=== PATIENT | male | born 1990 | race Two or more races ===

== ENCOUNTER 2018-08-15 10:18 | Inpatient (IN) | payer SELFPAY ==
[~2018-08-15] VITALS: Ht 177.8 cm; Wt 122.5 kg
[2018-08-15] MEDS ORDERED: ONDANSETRON HCL/PF 4 MG/2 ML VIAL ONE (10:46)
[2018-08-15] MEDS ORDERED: MORPHINE SULFATE INJ 4 MG/ML DISP.SYRIN ONE ×2 (10:47→11:12)
[2018-08-15] MEDS ORDERED: IV NS 0.9% 1,000 ML BAG IV ONE (11:00)
[2018-08-15] MEDS ORDERED: ONDANSETRON HCL/PF 4 MG/2 ML VIAL IVP ONE (11:00)
[2018-08-15] MEDS ORDERED: MORPHINE SULFATE INJ 2 MG/ML DISP.SYRIN IV ONE ×2 (11:00→11:30)
[2018-08-15 11:03] LABS: BASOPHILS # (AUTO) 0.2 /CMM (0.0-0.2); BASOPHILS % (AUTO) 1.7 % (0.0-2.0); EOSINOPHILS % (AUTO) 0.1 % (0.0-6.0); HEMATOCRIT 45 % (39-51); HEMOGLOBIN 14.9 g/dL (13.5-17.5); LYMPHOCYTES # (AUTO) 1.3 /CMM (0.8-4.8); LYMPHOCYTES % (AUTO) 9.2 % (20.0-44.0); MEAN CORPUSCULAR HGB CONC 33 g/dl (31.0-36.0); MEAN CORPUSCULAR VOLUME 83 fL (80-96); MONOCYTES # (AUTO) 0.5 /CMM (0.1-1.30); MONOCYTES % (AUTO) 3.7 % (2.0-12.0); NEUTROPHILS # (AUTO) 12.6 /CMM (1.8-8.9); NEUTROPHILS % (AUTO) 85.3 % (43.0-81.0); PLATELET COUNT (AUTO) 283 /CMM (150-450); RDW COEFFICIENT OF VARIATION 11.9 (11.5-15.0); RED BLOOD CELL COUNT(AUTO) 5.37 MIL/uL (4.5-6.0); WHITE BLOOD COUNT (AUTO) 14.6 K/uL (4.3-11.0)
[2018-08-15 11:04] LABS: APPEARANCE,URINE Clear (CLEAR); BILIRUBIN,URINE SMALL (NEGATIVE); BLOOD, URINE Negative Ery/uL (NEGATIVE); COLOR,URINE Dark (YELLOW); KETONES,URINE >=160 (NEGATIVE); LEUKOCYTE ESTERASE ,URINE Negative (NEGATIVE); NITRITE, URINE Negative (NEGATIVE); PH,URINE 8.5 (5.0-8.0); PROTEIN,URINE 100 mg/dl (NEGATIVE); UGLUCOSE Negative (NEGATIVE)
--- NOTE | 2018-08-15 11:15 | NUR ---
Pt still complaining of pain Dr Ruiz made aware w/orders
[2018-08-15 11:20] LABS: INR 0.95 (0.85-1.15)
[2018-08-15 11:22] LABS: ALBUMIN 4.2 g/dL (3.4-5.0); BILIRUBIN,DIRECT 0.1 mg/dL (0.0-0.2); BILIRUBIN,TOTAL 0.8 mg/dL (0.2-1.0); CREATININE 1.2 mg/dL (0.6-1.3); POTASSIUM 3.4 mmol/L (3.5-5.1); TOTAL PROTEIN, SERUM 8.1 g/dL (6.4-8.2)
[2018-08-15] MEDS ORDERED: LORAZEPAM INJ 2 MG/ML VIAL ONE (11:22)
[2018-08-15] MEDS ORDERED: LORAZEPAM INJ 2 MG/ML VIAL IV ONE (11:30)
[2018-08-15 11:31] LABS: BACTERIA,URINE Rare /HPF (None Seen); RBC,URINE NONE SEEN /HPF (0-2); SQUAMOUS EPITHELIAL CELL,UR Few /HPF (None Seen); WBC,URINE NONE SEEN /HPF (0-3)
--- NOTE | 2018-08-15 11:39 | NUR ---
ACACIA AND SPOKE WITH DR RIP MCNEIL
--- NOTE | 2018-08-15 11:40 | NUR ---
Pt dozing appears more comfortable skin warm/dry/pink states pain"its a little better but still hurts" updated w/plan
--- NOTE | 2018-08-15 12:24 | NUR ---
Pt going to -. Nurse knowledge exchange w/RN-Eh. Transported per sury by EMT VSS
[2018-08-15] MEDS ORDERED: Z GUARD REMEDY 2 OZ OINT TP PRN (13:30)
[2018-08-15] MEDS ORDERED: ZOLPIDEM TARTRATE 5 MG TABLET PO PRN (13:30)
[2018-08-15] MEDS ORDERED: ACETAMINOPHEN 325 MG TABLET PO PRN (13:30)
[2018-08-15] MEDS ORDERED: MAGNESIUM HYDROXIDE 30 ML UDC PO PRN (13:30)
[2018-08-15] MEDS ORDERED: MORPHINE SULFATE INJ 2 MG/ML DISP.SYRIN IV PRN (13:30)
[2018-08-15] MEDS ORDERED: MAG HYDROX/AL HYDROX/SIMETH 30 ML UDC PO PRN (13:30)
[2018-08-15] MEDS ORDERED: ONDANSETRON HCL/PF 4 MG/2 ML VIAL IVP PRN (13:30)
[2018-08-15 14:00] VITALS: BP 152/74
--- NOTE | 2018-08-15 14:00 | NUR ---
MS FEED MILL SUPERVISOR NOTE PT ARRIVED TO [facility] UNIT VIA GURNEY IN STABLE CONDITION ACCOMPANIED BY FRIEND. PT ABLE TO AMBULATE TO BED. PT IS A/O X4, AFEBRILE. RESPIRATIONS ARE EVEN AND UNLABORED, NOT IN ANY ACUTE DISTRESS NOTED. NO C/O SOB, N/V. PT C/O PAIN 10/10 TO RIGHT ABDOMEN/FLANK AND WILL MANAGE PAIN ACCORDINGLY. ABDOMEN IS TENDER RUQ/RLQ W/ PAIN UPON PALPATION. PT DENIES ANY BLADDER DISCOMFORT. IV SITE TO RIGHT HANG G20, INTACT. NO INFILTRATION NOTED. DRESSING KEPT CLEAN AND DRY. NO SKIN ISSUES NOTED. ID BAND REPLACED. SAFETY MEASURES ARE IN PLACE. INSTRUCTED PT TO USE CALL LIGHT WHEN ASSISTANCE IS NEEDED, CALL LIGHT IS LEFT WITHIN REACH. DR. STEVENS MADE AWARE OF ADMISSION. WILL CONTINUE TO MONITOR THROUGHOUT SHIFT FOR CONTINUITY OF CARE.
[2018-08-15] MEDS: IV NS 0.9% 1,000 ML IV PRN (14:11)
[2018-08-15] MEDS: MORPHINE SULFATE INJ 4 MG/ML DISP.SYRIN IV PRN (14:20)
[2018-08-15] MEDS: PIPERACILLIN /TAZOBACTAM 3.375 G in IV D5W 50 ML IV SCH ×2 (14:23→19:53)
--- NOTE | 2018-08-15 14:30 | NUR ---
DR HARRISON AT BEDSIDE TALKING TO PATIENT. CANCEL HIDA SCAN PER DR HARRISON. PATIENT FOR LAPAROSCOPIC CHOLECYSTECTOMY POSSIBLE OPEN TOMORROW,PER DR HARRISON.
--- NOTE | 2018-08-15 15:03 | NUR ---
NPO AFTER MIDNIGHT PER DR HARRISON
[2018-08-15 16:00] VITALS: BP 128/65
[2018-08-15] MEDS: HYDROCODONE/APAP 5/325MG 1 EACH TABLET PO PRN (17:41)
--- NOTE | 2018-08-15 18:37 | NUR ---
MS RN CLOSING NOTES ALL DUE MEDS GIVEN, NEEDS MET AND RENDERED. PT REMAINS A/O X4, AFEBRILE. RESPIRATIONS ARE EVEN AND UNLABORED, NOT IN ANY ACUTE DISTRESS NOTED. DENIES ANY CHEST PIN, SOB, N/V. PAIN HAS BEEN CONTROLLED TO RIGHT FLANK. IV SITE INTACT, NO INFILTRATION NOTED. DRESSING KEPT CLEAN AND DRY. IV FLUIDS RUNNING AND TOLERATING WELL. SAFETY MEASURES ARE IN PLACE. REMINDED PT TO USE CALL LIGHT WHEN ASSISTANCE IS NEEDED, CALL LIGHT IS LEFT WITHIN REACH. WILL ENDORSE TO NEXT SHIFT FOR CONTINUITY OF CARE.
--- NOTE | 2018-08-15 19:50 | NUR ---
RN INITIAL NOTES: RECEIVED REPORT FROM JOSE EVANS. MET WITH PT AT BED SIDE, PT IS A/O X4, ON RA RESPIRATION EVEN AND UNLABORED, PT STATED HE'S PAIN WAS A LOT BETTER /, CLAIMED HE DOESNT NEED ANY PAIN MEDICATION AT THIS TIME, AND WILL CALL IF HE NEEDS IT. FRIENDS AT BED SIDE. PT AWARE OF THE SURGERY TOMORROW, CONSENT FOR PROCEDURE, ANESTHESIA, AND BLOOD OBTAINED BY KYARA RN. PT MADE AWARE THAT HE WILL BE NPO AFTER MIDNIGHT. PT REFUSED IVF, STATED HE'S BEEN DRINKING LITERS OF WATER. EDUCATION PROVIDED TO THE PT. PT HAS RIGHT HAND G 20 PATENT AND FLUSHING WELL, ON HL, NO S/S OF INFILTRATION NOTED. SAFETY PRECAUTIONS FOR FALL INITIATED, CALL LIGHT IN REACH, WILL CONTINUE MONITORING PT.
[2018-08-15 20:00] VITALS: BP 114/89
--- NOTE | 2018-08-15 22:00 | NUR ---
RN NOTES: OFFERED PAIN MEDICATION BUT PT STATED HE'S OKAY FOR NOW, HE WILL CALL WHEN HE NEEDS THE MEDICINE
[2018-08-16] VITALS (9 sets, daily range): BP systolic 117–145; BP diastolic 57–74
--- NOTE | 2018-08-16 | NUR ---
RN NOTES: PT ON NPO, REMOVED WATER AND PITCHER ON THE TABLE, PT SLEEPING AT THIS TIME
[2018-08-16] MEDS: PIPERACILLIN /TAZOBACTAM 3.375 G in IV D5W 50 ML IV SCH ×4 (01:03→19:46)
[2018-08-16] MEDS: IV NS 0.9% 1,000 ML IV PRN (02:41)
[2018-08-16] MEDS ORDERED: BUPIVACAINE MPF W/EPI 0.25% 30 ML VIAL ONE (06:56)
--- NOTE | 2018-08-16 07:15 | NUR ---
RN CLOSING NOTES: PT IN BED, AWAKE, DENIES ANY PAIN OR DISCOMFORT AT THIS TIME. IV ACCESS REMAINS PATENT AND FLUSHING WELL, ON HL, REFUSED IVF. PT REMAINS ON NPO FOR SURGERY AT 0730AM. ALL CONSENT SECURED, CHECKLIST COMPLETED. VS REMAINS STABLE. NEEDS ATTENDED. SAFETY PRECAUTIONS FOR FALL REMAINS ENGAGED, CALL LIGHT IN REACH, WILL ENDORSE TO DAY RN FOR CONTINUITY OF CARE.
[2018-08-16] MEDS ORDERED: MIDAZOLAM HCL 2 MG/2ML VIAL ONE (07:22)
[2018-08-16] MEDS ORDERED: FENTANYL PF 250MCG/5ML AMPUL ONE (07:22)
[2018-08-16] MEDS ORDERED: FENTANYL PF 100MCG/2ML AMPUL ONE ×3 (07:23→09:03)
[2018-08-16] MEDS ORDERED: METOCLOPRAMIDE HCL 10 MG/2 ML VIAL ONE ×2 (07:24→09:36)
[2018-08-16] MEDS ORDERED: ROCURONIUM BROMIDE 50 MG/5 ML ONE ×2 (07:25→08:33)
[2018-08-16] MEDS ORDERED: FAMOTIDINE/PF INJ 20 MG/2 ML VIAL IV ONE (07:25)
[2018-08-16 07:34] LABS: BASOPHILS % (AUTO) 0.1 % (0.0-2.0); EOSINOPHILS % (AUTO) 0.4 % (0.0-6.0); HEMATOCRIT 43 % (39-51); LYMPHOCYTES # (AUTO) 1.6 /CMM (0.8-4.8); LYMPHOCYTES % (AUTO) 15.1 % (20.0-44.0); MEAN CORPUSCULAR HGB CONC 33 g/dl (31.0-36.0); MEAN CORPUSCULAR VOLUME 86 fL (80-96); MONOCYTES # (AUTO) 0.9 /CMM (0.1-1.30); MONOCYTES % (AUTO) 8.5 % (2.0-12.0); NEUTROPHILS # (AUTO) 7.9 /CMM (1.8-8.9); NEUTROPHILS % (AUTO) 75.9 % (43.0-81.0); PLATELET COUNT (AUTO) 215 /CMM (150-450); RDW COEFFICIENT OF VARIATION 12.8 (11.5-15.0); RED BLOOD CELL COUNT(AUTO) 4.93 MIL/uL (4.5-6.0); WHITE BLOOD COUNT (AUTO) 10.4 K/uL (4.3-11.0)
--- NOTE | 2018-08-16 07:37 | NUR ---
MS RN Initial notes Patient off the unit, surgery today for lap rex. by Dr. Alvarez.
[2018-08-16 07:59] LABS: ALBUMIN 3.4 g/dL (3.4-5.0); BILIRUBIN,TOTAL 0.8 mg/dL (0.2-1.0); MAGNESIUM 1.7 mg/dL (1.8-2.4); PHOSPHORUS 2.8 mg/dL (2.5-4.9); POTASSIUM 3.7 mmol/L (3.5-5.1); TOTAL PROTEIN, SERUM 7.1 g/dL (6.4-8.2)
[2018-08-16] MEDS: MORPHINE SULFATE INJ 4 MG/ML DISP.SYRIN IV PRN ×4 (10:02→22:01)
--- NOTE | 2018-08-16 10:27 | NUR ---
Patient is back from OR, s/p Lap cholecystectomy by Dr. Valdez. Lap sites x5 and 1 ROSCOE drain with bloody fluid output, patient is awake, complaint of severe pain incisional sites, given IV PRN morphine, will reassess. at the bedside. Addendum: 08/16/18 at 1038 by ELVIN VILLATORO RN Continuation notes below: Zosyn 0800 dose non administered, will give next dose at due time, spoke with pharmacy [facility].
[2018-08-16] MEDS: Magnesium 1GM/D5W 100ML PREMIX 100 ML IV SCH ×2 (11:21→12:27)
[2018-08-16] MEDS: HYDROCODONE/APAP 5/325MG 1 EACH TABLET PO PRN ×3 (11:32→19:43)
[2018-08-16] MEDS: IV D5/0.45 NACL W/20 MEQ KCL 1L IV PRN ×2 (12:58)
--- NOTE | 2018-08-16 18:45 | NUR ---
MS RN Closing notes Patient is A/O x4. Breathing on room air, tolerating well, denies SOB. S/P lap Cholecystectomy today by Dr. Valdez. Patient's V/S been stable throughout the shift. Abdomen incisional sites pain managed by IV PRN Morphine and PO PRN [place]. Low magnesium level, supplemented today. Abdomen lap sites covered with mepilex, clean and dry. ROSCOE drain intact to bulb suction with bloody fluid output 310ml, drain site with minimal bleeding, covered with ABD pad and secured with paper tape. Tolerating full liquids diet, no N/V, will advance to regular diet as ordered. Ambulate independently to the bathroom and voided without difficulty. Call light within reach. Will endorse to oncoming RN.
--- NOTE | 2018-08-16 19:36 | NUR ---
MS/RN OPENING NOTES RECEIVED PATIENT IN BED, ALERT, AWAKE, ABLE TO VERBALIZE NEEDS, FAMILY AT BEDSIDE, PAIN MEDICATION MONITORING FOR RELIEF, INFOMRD SOME PAIN MODERATE AND NORCO PO DUE TO BE GIVEN, KEPT COMFORTABLE, O2 SAT AT 2L AT 99%M ROSCOE DRAIN WITH MINIMAL DRAIN, WILL CONTINUE TO PROVIDE AND MONITOR PATIENT. RECEWIVED ENDORSEMENT FROM AM RN AFTER S/P SX.
[2018-08-17] MEDS ORDERED: IV PREMIX D5 1/2NS + KCL 1,000 ML IV ONE (01:27)
[2018-08-17] MEDS: PIPERACILLIN /TAZOBACTAM 3.375 G in IV D5W 50 ML IV SCH ×4 (01:36→20:49)
[2018-08-17] MEDS: IV D5/0.45 NACL W/20 MEQ KCL 1L IV PRN ×2 (01:38)
[2018-08-17] MEDS ORDERED: MORPHINE SULFATE INJ 4 MG/ML DISP.SYRIN ONE (04:28)
[2018-08-17] MEDS: MORPHINE SULFATE INJ 4 MG/ML DISP.SYRIN IV PRN ×3 (04:34→18:13)
--- NOTE | 2018-08-17 04:40 | NUR ---
ms/rn notes PAIN REPORTED /, PAIN IN ABDOMEN AND RADIATING TO BACK, LAST PAIN MEDICATION GIVEN BEFORE BEDTIME, , ROSCOE DRAIN EMPTIED AT 40CC.WITH THICK RED BLOOD.AMBULATORY WITH SUPERVISION
--- NOTE | 2018-08-17 06:28 | NUR ---
207-1 MS/RN NOTES PATIENT ABLE TO SLEEP DURING THE NIGHT. ALERT, ORIENTED X3, ABLE TO VERBALIZE NEED, MEDICATED FOR PAIN.RESPIRATIONS EVEN AND UNLABORED, SKIN WARM TO TOUCH. PROVIDED FLUIDS. BED IN LOCK POSITION, CALL LIGHTS WITHIN REACH. WILL ENDORSE TO AM RN FOR JONES.
[2018-08-17 07:10] LABS: BASOPHILS % (AUTO) 0.3 % (0.0-2.0); EOSINOPHILS % (AUTO) 0.3 % (0.0-6.0); HEMATOCRIT 34 % (39-51); HEMOGLOBIN 11.2 g/dL (13.5-17.5); LYMPHOCYTES # (AUTO) 1.3 /CMM (0.8-4.8); MEAN CORPUSCULAR HGB CONC 33 g/dl (31.0-36.0); MEAN CORPUSCULAR VOLUME 87 fL (80-96); MONOCYTES # (AUTO) 0.7 /CMM (0.1-1.30); MONOCYTES % (AUTO) 7.6 % (2.0-12.0); NEUTROPHILS % (AUTO) 77.8 % (43.0-81.0); PLATELET COUNT (AUTO) 189 /CMM (150-450); RDW COEFFICIENT OF VARIATION 12.8 (11.5-15.0); RED BLOOD CELL COUNT(AUTO) 3.92 MIL/uL (4.5-6.0)
[2018-08-17 07:15] LABS: ALBUMIN 2.8 g/dL (3.4-5.0); BILIRUBIN,TOTAL 0.6 mg/dL (0.2-1.0); CALCIUM, SERUM 8.2 mg/dL (8.5-10.1); MAGNESIUM 1.9 mg/dL (1.8-2.4); POTASSIUM 3.8 mmol/L (3.5-5.1); TOTAL PROTEIN, SERUM 6.2 g/dL (6.4-8.2)
--- NOTE | 2018-08-17 07:25 | NUR ---
ms rn initial notes Received patient in bed, awake, head of bed elevated, on room air and tolerated well. Patient is asking for pain medication and will check if meds are due. ROSCOE drain intact with serosanguineous output. IV intact and patent with IVF infusing well. Call light with in patient reach, will continue to monitor accordingly.
[2018-08-17] MEDS: HYDROCODONE/APAP 5/325MG 1 EACH TABLET PO PRN ×2 (07:42→14:20)
[2018-08-17 08:00] VITALS: BP 119/67
[2018-08-17 16:00] VITALS: BP 118/63
[2018-08-17 18:00] VITALS: BP 118/63
--- NOTE | 2018-08-17 19:15 | NUR ---
ms rn closing notes All needs provided, attended, and anticipated. Patient in stable condition. Endorsed to next shift RN to continue care. Call light with in patient reach.
--- NOTE | 2018-08-17 19:30 | NUR ---
MS/RN OPENING NOTES PT RECEIVED WITH EYES CLOSED. RESPONSIVE TO VERBAL STIMULI. ON ROOM AIR, BREATHING EVEN AND UNLABORED. DENIES SOB, NOTES ABDOMINAL PAIN AT A TOLERABLE LEVEL 3-03/03. ROSCOE DRAIN WITH SEROSANGUINOUS OUTPUT. IVF CURRENTLY ON HOLD. BED IN LOW/LOCKED POSITION WITH CALL LIGHT IN REACH AND BILATERAL UPPER SIDE RAILS IN PLACE. WILL CONTINUE TO MONITOR
[2018-08-17 20:00] VITALS: BP 126/64
[2018-08-18] MEDS: HYDROCODONE/APAP 5/325MG 1 EACH TABLET PO PRN (00:20)
[2018-08-18] MEDS: IV D5/0.45 NACL W/20 MEQ KCL 1L IV PRN ×2 (01:56)
[2018-08-18] MEDS: PIPERACILLIN /TAZOBACTAM 3.375 G in IV D5W 50 ML IV SCH ×2 (01:56→08:50)
[2018-08-18 07:08] LABS: BASOPHILS % (AUTO) 0.5 % (0.0-2.0); EOSINOPHILS % (AUTO) 1.1 % (0.0-6.0); HEMATOCRIT 35 % (39-51); HEMOGLOBIN 11.8 g/dL (13.5-17.5); LYMPHOCYTES # (AUTO) 1.2 /CMM (0.8-4.8); LYMPHOCYTES % (AUTO) 20.5 % (20.0-44.0); MEAN CORPUSCULAR HGB CONC 34 g/dl (31.0-36.0); MEAN CORPUSCULAR VOLUME 85 fL (80-96); MONOCYTES # (AUTO) 0.7 /CMM (0.1-1.30); MONOCYTES % (AUTO) 12.3 % (2.0-12.0); NEUTROPHILS # (AUTO) 3.9 /CMM (1.8-8.9); NEUTROPHILS % (AUTO) 65.6 % (43.0-81.0); PLATELET COUNT (AUTO) 163 /CMM (150-450); RDW COEFFICIENT OF VARIATION 11.6 (11.5-15.0); RED BLOOD CELL COUNT(AUTO) 4.07 MIL/uL (4.5-6.0); WHITE BLOOD COUNT (AUTO) 5.9 K/uL (4.3-11.0)
--- NOTE | 2018-08-18 07:15 | NUR ---
MS RN Initial notes Patient is awake, A/O x 4. Breathing on room air, tolerating room air, no SOB. Abdomen lap site dressing intact, clean and dry. ROSCOE drain in place draining minimal sanguineous fluid. Denies pain, appears comfortable in bed. Call light within reach.
--- NOTE | 2018-08-18 07:37 | NUR ---
MS/RN CLOSING NOTES PT AWAKE SITTING UP IN BED. REMAINS ON ROOM AIR, BREATHING EVEN AND UNLABORED. DENIES SOB, ABDOMINAL PAIN TOLERABLE AT 2-3/10. DOES NOT WANT PAIN MEDICATION AT THIS TIME. ROSCOE DRAIN WITH SANGUINOUS OUTPUT, APPROX 20CC. IV TO LEFT HAND PATENT AND INTACT RUNNING IVF ORDERED. NO SIGNIFICANT CHANGES OVERNIGHT. ALL NEEDS MET. KEPT PT COMFORTABLE THROUGHOUT SHIFT. BED IN LOW/LOCKED POSITION WITH CALL LIGHT IN REACH AND BILATERAL UPPER SIDE RAILS IN PLACE. ENDORSED TO DAY SHIFT RN JONES.
[2018-08-18 08:05] VITALS: BP 138/79
--- NOTE | 2018-08-18 13:10 | NUR ---
MS RN DISCHARGED PATIENT HAS BEEN CLEARED FOR DISCHARGE HOME BY . DR. HARRISON REMOVED ROSCOE DRAIN AND GAUZED WAS APPLIED. NO INCISIONAL SITE PHOTO WAS TAKEN PER PATIENT PREFERENCE. DISCHARGE INSTRUCTION GIVEN TO PATIENT, PRESCRIPTION MEDICATION EDUCATION AND TEACHING PROVIDED, PATIENT VERBALIZED UNDERSTANDING. PATIENT IS AWARE TO FOLLOW UP WITH DR. HARRISON AND FOR INCISION NIHARIKA REMOVAL. BELONGINGS CHECK AND SEND WITH THE PATIENT UPON DC. PATIENT LEFT HOSP IN STABLE CONDITION ACCOMPANIED BY GIRLFRIEND VIA PRIVATE CAR.
== END 2018-08-18 13:10 | disposition home or self-care (01) | DRG 418 ==
LOC: ER 10:20 → MEDSG2 12:24
PROVIDERS: ADMIT Internal Medicine; ATTEND Internal Medicine
PROC: 0FT44ZZ Resection of Gallbladder, Percutaneous Endoscopic Approach (ICD-10-PCS; principal; 2018-08-14)
PROC: 04Q Lower Arteries, Repair (ICD-10-PCS; 2018-08-16)
DX: K80.00 Calculus of gallbladder with acute cholecystitis without obstruction (principal); I97.52 Accidental puncture and laceration of a circulatory system organ or structure during other procedure; E87.6 Hypokalemia; E66.9 Obesity, unspecified; K76.0 Fatty (change of) liver, not elsewhere classified; D72.829 Elevated white blood cell count, unspecified; Z68.38 Body mass index [BMI] 38.0-38.9, adult; Y83.8 Other surgical procedures as the cause of abnormal reaction of the patient, or of later complication, without mention of misadventure at the time of the procedure; Y82.8 Other medical devices associated with adverse incidents; Y92.234 Operating room of hospital as the place of occurrence of the external cause
CPT/HCPCS: 36415; 71045-TC; 76700-TC; 80048-TC; 80053-TC; 80061-TC; 80076-TC; 81000-TC; 83690-TC; 83735-TC; 84100-TC; 85025-TC; 85730-TC; 87070-TC; 87075-TC; 87081-TC; 88304-TC; A4606; A6253; A6402; A6403; J0360; J1100; J1885; J2060; J2250; J2270; J2405; J2543; J2704; J2710; J2765; J3010; J3475; J3480; J3490; J7030; J7060; Z7610